=== PATIENT | male | born 1995 | race African-American/Black ===

== ENCOUNTER 2017-02-22 10:51 | Emergency (ER) | payer OTHER ==
--- NOTE | 2017-02-22 13:33 | UC ---
Abdominal Pain Male HPI - HPI Summary HPI Summary: had crampy abdomen pain yesterday,patient reports a true syncopal episode when he had an acute bout of colicky pain--- - History of Current Complaint Chief Complaint: UCAbdominalPain Stated Complaint: ABDOMINAL PAIN Time Seen by Provider: 02/22/17 12:56 Hx Obtained From: Patient Onset/Duration: Sudden Onset, Resolved Severity Initially: Moderate Severity Currently: Mild Location: Diffuse Radiates: No Character: Colicy, Cramping Aggravating Factor(s): Nothing Alleviating Factor(s): Nothing Associated Signs And Symptoms: Positive: Negative - Allergies/Home Medications Allergies/Adverse Reactions: Allergies Allergy/AdvReac Type Severity Reaction Status Date / Time No Known Allergies Allergy Verified 02/22/17 11:01 Home Medications: Home Medications Aleve 2 tab PO PRN 02/22/17 [History] PMH/Surg Hx/FS Hx/Imm Hx Previously Healthy: Yes - Surgical History Surgical History: Yes Surgery Procedure, Year, and Place: [place] - Family History Known Family History: Positive: None - Social History Occupation: Student Lives: With Family Alcohol Use: Occasionally Substance Use Type: None Smoking Status (MU): Never Smoked Tobacco Review of Systems Constitutional: Negative Skin: Negative Eyes: Negative ENT: Negative Respiratory: Negative Cardiovascular: Negative Gastrointestinal: Abdominal Pain Genitourinary: Negative Motor: Negative Neurovascular: Negative Musculoskeletal: Negative Neurological: Other - Syncopal episode yesterday Psychological: Negative Is Patient Immunocompromised?: No All Other Systems Reviewed And Are Negative: Yes Physical Exam Triage Information Reviewed: Yes Appearance: Well-Appearing, No Pain Distress, Well-Nourished Vital Signs: Initial Vital Signs Temp 99.0 F 02/22/17 11:02 Pulse 68 02/22/17 11:02 Resp 16 02/22/17 11:02 BP 135/69 02/22/17 11:02 Pulse Ox 100 02/22/17 11:02 Vital Signs Reviewed: Yes Eye Exam: Normal Eyes: Positive: Conjunctiva Clear ENT Exam: Normal ENT: Positive: Normal ENT inspection, Hearing grossly normal, TMs normal. Negative: Nasal congestion, Nasal drainage, Trismus, Muffled/hoarse voice Dental Exam: Normal Neck exam: Normal Neck: Positive: Supple, Nontender Respiratory Exam: Normal Respiratory: Positive: Chest non-tender, Lungs clear, Normal breath sounds, No respiratory distress, No accessory muscle use Cardiovascular Exam: Normal Cardiovascular: Positive: RRR, No Murmur - with and without valsalva, Pulses Normal, Brisk Capillary Refill Abdominal Exam: Normal Abdomen Description: Positive: No Organomegaly, Soft, Other: - diffuse discomfort. Negative: CVA Tenderness (R), CVA Tenderness (L) Bowel Sounds: Positive: Present Musculoskeletal Exam: Normal Musculoskeletal: Positive: Strength Intact, ROM Intact, No Edema Neurological Exam: Normal Neurological: Positive: Alert, Muscle Tone Normal Psychological Exam: Normal Skin Exam: Normal Diagnostics - Laboratory Diagnostic Studies Completed/Ordered: ua-+1 protien - EKG Cardiac Rate: NL Cardiac Rhythm: Sinus: Normal - LVH Ectopy: None ST Segment: Non-Specific Abd Pain Male Course/Dx - Course Course Of Treatment: clear liquids, increase fluids, follow with cardiology for evaluation of syncope and LVH - Differential Dx/Clinical Impression Differential Diagnosis/HQI/PQRI: Appendicitis, Constipation, Ureteral Stone, Urinary Tract Infection, Other - cardiac arrythemia Provider Diagnoses: Abdomen Pain, Syncope Discharge - Discharge Plan Condition: Stable Disposition: HOME Patient Education Materials: Clear Liquid Diet (ED), Syncope (ED), Acute Abdominal Pain (ED) Referrals: Bhupendra Hook DO [Medical Doctor] - 4 Days
== END 2017-02-22 14:35 | disposition home or self-care (01) ==
LOC: UCEAST 10:51
DX: R10.9 Unspecified abdominal pain (principal); R55 Syncope and collapse
CPT/HCPCS: 81003; 93005; 99212; G0463